=== PATIENT | male | born 1960 | race Caucasian/White ===

== ENCOUNTER 2018-11-06 19:04 | Emergency (ER) | payer OTHER, SELFPAY ==
[2018-11-06] VITALS (7 sets, daily range): BP systolic 119–147; BP diastolic 81–101; PULSE 54–81; RESP 16–22; TEMP 36.6–36.7; O2SAT 97–99; BMI 28.8
--- NOTE | 2018-11-06 19:56 | EKG12_ITS ---
Test Reason : CP Blood Pressure : / mmHG Vent. Rate : 064 BPM Atrial Rate : 064 BPM P-R Int : 128 ms QRS Dur : 094 ms QT Int : 410 ms P-R-T Axes : 034 -04 -05 degrees QTc Int : 422 ms Normal sinus rhythm Normal ECG Confirmed by YESENIA STONE, CARLOS ([id number]), electronic news gathering editor DUNIA MATOS ([id number]) on 11/09/2018 11:47:30 AM Referred By: HUMBLE Confirmed By:CARLOS PATTERSON MD
--- NOTE | 2018-11-06 20:02 | RAD_ITS ---
STUDY: X-RAY CHEST REASON FOR EXAM: Male, 58 years old. Coughing and dyspnea for 2 weeks. TECHNIQUE: 1 view COMPARISON: Prior chest radiograph of April 23, 2015. FINDINGS: Shallow inspiration without new consolidation, focal atelectasis or pleural effusion. There is no demonstrated pleural abnormality. Normal mediastinum and claude. Normal visualized pulmonary arteries. Normal visualized aortic arch and descending thoracic aorta. Normal visualized thoracic spine. Normal visualized ribs, clavicles, and shoulders. There is no demonstrated abnormality of the visualized soft tissue structures of the upper abdomen. RAD/Chest 1 View (Portable) IMPRESSION: Shallow inspiration without other acute cardiopulmonary findings. Electronically Signed: Shawna Kaplan MD at 20:17 EDT , Service support ,
[2018-11-06 20:14] LABS: Absolute Lymphocyte Count 2.51 X10^3/ul (0.83-4.51); Absolute Neutrophil Count 2.3 X10^3/uL (2.0-7.7); Basophil# 0.04 X10^3/uL; Basophil% 0.7 % (0-1); Eosinophil# 0.25 X10^3/uL; Eosinophils% 4.3 % (0-5); Hematocrit 44.2 % (40-54); Hemoglobin 15.5 g/dl (13.0-16.5); Lymphocyte # 2.51 X10^3/ul (4.0); Lymphocyte % 43.5 % (19-41); Mean Corp Hgb Conc 35.1 g/gl (32-36); Mean Corpuscular Hgb 30.8 pg (27.0-32.0); Mean Corpuscular Volume 87.7 fL (80-94); Mean Platelet Vol. 10.5 fl (6.2-12.0); Monocyte% 12.1 % (0-10); Neutrophil # 2.26 X10^3/uL (2.7-7.7); Neutrophil % 39.2 % (47-70); Platelet Count 232 K/mm3 (150-450); Prothrombin Time (Protime)PT. 13.4 SECONDS (11.7-14.9); RBC Distribution Width CV 12.4 % (11.6-14.6); RBC Distribution Width SD 39.8 fl (35.1-43.9); Red Blood Count 5.04 M/mm3 (4.6-6.2); White Blood Count 5.8 K/mm3 (4.4-11.0)
[2018-11-06 20:17] LABS: POSITIVE COUNT NO; POSITIVE DIFFERENTIAL NO; POSITIVE MORPHOLOGY NO
[2018-11-06 20:24] LABS: Anion Gap 6 (5-15); BUN 13 mg/dL (7-18); BUN/Creat Ratio 13.1 RATIO (10-20); Calcium,Total 8.6 mg/dL (8.5-10.1); Chloride 103 mmol/L (98-107); Creatinine, Serum 0.99 mg/dL (0.70-1.30); EST Glomerular Filtration Rate 83 mL/min (>60); Est Glom Filt Rate - Afr Amer 100 mL/min (>60); Estimated Creatinine Clearance 83.32 ml/min; Glucose 228 mg/dL (74-106); Potassium 3.9 mmol/L (3.5-5.1); Sodium Level 136 mmol/L (136-145)
--- NOTE | 2018-11-06 21:19 | ED.VISSUMM ---
- ER Visit Summary Date of Service: 11/06/18 Chief Complaint: Cough with wheezing and chest pain History of Present Illness: The patient is a 58 M nursing past medical history. No cardiac history. For the last 2 weeks the patient had a cough productive yellowish-green sputum. Chest pain with coughing. But no exertional or cardiac sounding chest pain. No history of DVT or PE. No dyspnea or hemoptysis. No leg pain or swelling. No travel or surgery. Patient was seen in the urgent care earlier [facility] who said he was wheezing and once in the ER. He denies any nausea vomiting diarrhea. Physical Examination: Middle-aged male no acute distress. Vital signs are stable and afebrile. Pulse ox 97% on room air no hypoxia. HEENT exam unremarkable. Moist with memories. Neck nontender. No lymphadenopathy. Lungs dry hacking cough. Expiratory wheezing throughout. No rales or rhonchi. Equal symmetrical. No distress. Heart regular rhythm rate about 60 no murmur. Chest wall nontender. Abdomen soft nontender. Normal bowel sounds. Patient is moving all 4 extremities. Neurovascular intact. Calves are nontender without edema or cords. Neurologically he is awake and alert with no focal motor deficits. Test Results: Nurses put into chest pain protocol due to the number of patients in the emergency department any acuity. Patient CBC was normal with a white count of 5. Hemoglobin 15. Electrolytes unremarkable glucose of 228. Troponin normal. EKG sinus rhythm rate is 64 no signs of NE or ischemia and unchanged from an EKG from 2015. Portable 1 view chest x-ray showed no acute abnormality read both by myself and the radiologist. No infiltrate. Emergency Department Course and Treatment: Patient has a bronchitis is not improving over 2 weeks. He is wheezing. He will be given a dose of prednisone here. A DuoNeb breathing treatment. Hycodan for his cough. And his first dose of Zithromax. Treatment Plan: Prednisone 40 mg a day for 1 week. Zithromax Z-GERARDO. Hycodan cough syrup. Follow-up with his doctor if not improving return if worse. Disposition: Discharge Impression: Bronchitis with wheezing and bronchospasm This note was generated with [employer] dictation software. It may contain incorrect words, spelling, and punctuation that were not noted in review of the chart prior to signing ED Disposition - Plan for ED Patient: Referrals: Jose Alberto Chin PA [Primary Care Provider] -
--- NOTE | 2018-11-06 21:22 | ED.DCSUM_ITS ---
- ER Visit Summary Date of Service: 11/06/18 Chief Complaint: Cough with wheezing and chest pain History of Present Illness: The patient is a 58 M nursing past medical history. No cardiac history. For the last 2 weeks the patient had a cough productive yellowish-green sputum. Chest pain with coughing. But no exertional or cardiac sounding chest pain. No history of DVT or PE. No dyspnea or hemoptysis. No leg pain or swelling. No travel or surgery. Patient was seen in the urgent care earlier [place] who said he was wheezing and once in the ER. He denies any nausea vomiting diarrhea. Physical Examination: Middle-aged male no acute distress. Vital signs are stable and afebrile. Pulse ox 97% on room air no hypoxia. HEENT exam unremarkable. Moist with memories. Neck nontender. No lymphadenopathy. Lungs dry hacking cough. Expiratory wheezing throughout. No rales or rhonchi. Equal symmetrical. No distress. Heart regular rhythm rate about 60 no murmur. Chest wall nontender. Abdomen soft nontender. Normal bowel sounds. Patient is moving all 4 extremities. Neurovascular intact. Calves are nontender without edema or cords. Neurologically he is awake and alert with no focal motor deficits. Test Results: Nurses put into chest pain protocol due to the number of patients in the emergency department any acuity. Patient CBC was normal with a white count of 5. Hemoglobin 15. Electrolytes unremarkable glucose of 228. Troponin normal. EKG sinus rhythm rate is 64 no signs of MO or ischemia and unchanged from an EKG from 2015. Portable 1 view chest x-ray showed no acute abnormality read both by myself and the radiologist. No infiltrate. Emergency Department Course and Treatment: Patient has a bronchitis is not improving over 2 weeks. He is wheezing. He will be given a dose of prednisone here. A DuoNeb breathing treatment. Hycodan for his cough. And his first dose of Zithromax. Treatment Plan: Prednisone 40 mg a day for 1 week. Zithromax Z-GERARDO. Hycodan cough syrup. Follow-up with his doctor if not improving return if worse. Disposition: Discharge Impression: Bronchitis with wheezing and bronchospasm This note was generated with Snow[employer] dictation software. It may contain incorrect words, spelling, and punctuation that were not noted in review of the chart prior to signing ED Disposition - Plan for ED Patient: Referrals: Jose Alberto Chin PA [Primary Care Provider] -
--- NOTE | 2018-11-06 21:22 | ED.DEP ---
ED Disposition - Plan for ED Patient: Disposition: Home or Assisted Living Instructions: Acute Bronchitis Prescriptions: Albuterol Inhaler [Ventolin Hfa] 1 - 2 puff INHALATION Q4H PRN PRN #1 inhaler PRN Reason: Wheezing Hydrocodone Bit/Homatropine [Hycodan Syrup] 5 ml GT Q4H PRN PRN 4 Days udc PRN Reason: Cough Azithromycin [Zithromax] 250 mg PO DAILY #4 tab Prednisone [Deltasone] 40 mg PO DAILY 7 Days tab Referrals: Jose Alberto Chin PA [Primary Care Provider] - 1 Week if not improving Additional Instructions: Prednisone 40-day for the wheezing. Inhaler 1 to 2 puffs every 2-4 hours as needed for wheezing and shortness of breath. Hycodan for the cough and to help you sleep do not drive if you are using it due to the codeine in it. Zithromax antibiotic 1 pill a day for the next 4 days starting tomorrow. Follow-up with your primary care provider if not improving return the ER if feeling worse.
[2018-11-06] MEDS: predniSONE 20 MG Tablet 60 MG PO (21:31)
[2018-11-06] MEDS: Azithromycin 250 MG Tablet 500 MG PO (21:31)
[2018-11-06] MEDS: Ipratropium/Albuterol Sulfate 3 ML AMPUL.NEB INHALATION (21:43)
--- NOTE | 2018-11-06 21:56 | ED.RN ---
THIS NURSE REVIEWED D/C INSTRUCTIONS WITH PT. PT VERBALIZED UNDERSTANDING OF INSTRUCTIONS. IV D/C. IV CATHETER INTACT. PT TOLERATED WELL. PT DENIES FURTHER NEEDS OR QUESTIONS AT THIS TIME
== END 2018-11-06 21:57 | disposition home or self-care (01) ==
PROVIDERS: Emergency Provider Emergency Medicine; Family Provider Physician Assistant; PCP Physician Assistant
DX: J40 Bronchitis, not specified as acute or chronic (principal); R06.2 Wheezing; R07.9 Chest pain, unspecified
CPT/HCPCS: 71045; 80048; 84484; 85025; 85610; 93005; 94640; 99285; A4216

== ENCOUNTER → 2023-04-09 | Outpatient (CLI) | payer OTHER, SELFPAY ==
[2023-04-09 10:30] LABS: Vitamin D,25 Hydroxy 25.7 ng/mL
[2023-04-09 10:39] LABS: ALB/GLOB Ratio 1.1 RATIO (0.9-2.4); AST(SGOT) 20 U/L (15-37); Alanine Aminotransfer ALT/SGPT 33 U/L (16-61); Albumin, Serum 3.9 g/dL (3.2-5.0); Alkaline Phosphatase 76 U/L (45-117); Anion Gap 6 (5-15); BUN 17 mg/dL (7-18); BUN/Creat Ratio 17.1 RATIO (10-20); Chloride 102 mmol/L (98-107); Cholesterol 233 mg/dL (200); EST Glomerular Filtration Rate 81 mL/min (>60); Est Glom Filt Rate - Afr Amer 98 mL/min (>60); Globulin 3.6 g/dL (2.2-4.2); Glucose 172 mg/dL (74-106); High Density Lipoprotein 43 mg/dL; Potassium 4.3 mmol/L (3.5-5.1); Protein, Total 7.5 g/dL (6.4-8.2); Sodium Level 136 mmol/L (136-145); Thyroid Stim Hormone (TSH) 2.32 uIU/mL (0.358-3.74); Triglycerides 150 mg/dL; Very Low Density Lipoprotein 30 mg/dL (5-40)
[2023-04-09 10:41] LABS: Microalbumin,Random Urine 11.1 mg/L (NO RANGE EST.); Microalbumin:Creatinine Ratio 7.2 mg/g CRE (<30 mg/g CRE)
== END | disposition home or self-care (01) ==
PROVIDERS: PCP Physician Assistant; Referring Provider Nurse Practitioner Family; Visit Provider Nurse Practitioner Family
DX: E11.9 Type 2 diabetes mellitus without complications (principal)
CPT/HCPCS: 36415; 80053; 80061; 82043; 82306; 82570; 84443

== ENCOUNTER → 2023-10-09 | Outpatient (CLI) | payer OTHER, SELFPAY ==
[2023-10-09 16:59] LABS: ALB/GLOB Ratio 1.1 RATIO (0.9-2.4); AST(SGOT) 25 U/L (15-37); Alanine Aminotransfer ALT/SGPT 35 U/L (16-61); Albumin, Serum 3.9 g/dL (3.2-5.0); Alkaline Phosphatase 91 U/L (45-117); Anion Gap 8 (5-15); BUN 23 mg/dL (7-18); BUN/Creat Ratio 18.7 RATIO (10-20); Calcium,Total 9.2 mg/dL (8.5-10.1); Chloride 105 mmol/L (98-107); Creatinine, Serum 1.23 mg/dL (0.70-1.30); EST Glomerular Filtration Rate 64 mL/min (>60); Est Glom Filt Rate - Afr Amer 77 mL/min (>60); Globulin 3.4 g/dL (2.2-4.2); Glucose 196 mg/dL (74-106); Protein, Total 7.3 g/dL (6.4-8.2); Sodium Level 137 mmol/L (136-145)
[2023-10-09 18:20] LABS: Vitamin D,25 Hydroxy 55.8 ng/mL
== END | disposition home or self-care (01) ==
LOC: BIMLAB 14:33
PROVIDERS: PCP Physician Assistant; Visit Provider Nurse Practitioner Family
DX: E11.9 Type 2 diabetes mellitus without complications (principal); E55.9 Vitamin D deficiency, unspecified
CPT/HCPCS: 36415; 80053; 82306

== ENCOUNTER → 2024-09-03 | Outpatient (CLI) | payer OTHER, SELFPAY ==
[2024-09-03 09:44] LABS: Absolute Lymphocyte Count 1.88 X10^3/uL (0.83-4.51); Absolute Neutrophil Count 2.8 X10^3/uL (2.0-7.7); Basophil# 0.09 X10^3/uL; Basophil% 1.5 % (0-1); Eosinophil# 0.45 X10^3/uL; Eosinophils% 7.4 % (0-5); Hematocrit 47.7 % (40-54); Hemoglobin 15.9 g/dL (13.0-16.5); Lymphocyte # 1.88 X10^3/ul (0.83-4.51); Lymphocyte % 31.1 % (19-41); Mean Corp Hgb Conc 33.3 g/dL (32-36); Mean Corpuscular Hgb 29.1 pg (27.0-32.0); Mean Corpuscular Volume 87.4 fL (80-94); Monocyte# 0.82 X10^3/uL; Monocyte% 13.6 % (0-10); NRBC Flagged by Analyzer 0 % (0-5); Neutrophil % 46.2 % (47-70); Platelet Count 258 K/mm3 (150-450); RBC Distribution Width CV 13.2 % (11.6-14.6); RBC Distribution Width SD 41.9 fl (35.1-43.9); Red Blood Count 5.46 M/mm3 (4.6-6.2); White Blood Count 6.1 K/mm3 (4.4-11.0)
[2024-09-03 10:22] LABS: ALB/GLOB Ratio 0.9 RATIO (0.9-2.4); AST(SGOT) 19 U/L (15-37); Alanine Aminotransfer ALT/SGPT 27 U/L (16-61); Albumin, Serum 3.9 g/dL (3.2-5.0); Alkaline Phosphatase 96 U/L (45-117); Anion Gap 7 (5-15); BUN 19 mg/dL (7-18); BUN/Creat Ratio 19.3 RATIO (10-20); Calcium,Total 9.5 mg/dL (8.5-10.1); Chloride 103 mmol/L (98-107); Cholesterol 247 mg/dL (200); Creatinine, Serum 0.99 mg/dL (0.70-1.30); EST Glomerular Filtration Rate 82 mL/min (>60); Est Glom Filt Rate - Afr Amer 99 mL/min (>60); Globulin 4.2 g/dL (2.2-4.2); Glucose 150 mg/dL (74-106); High Density Lipoprotein 51 mg/dL; Potassium 4.2 mmol/L (3.5-5.1); Protein, Total 8.1 g/dL (6.4-8.2); Sodium Level 137 mmol/L (136-145); Triglycerides 100 mg/dL; Very Low Density Lipoprotein 20 mg/dL (5-40)
[2024-09-03 10:47] LABS: Microalbumin,Random Urine 12.9 mg/L (NO RANGE EST.)
== END | disposition home or self-care (01) ==
LOC: LAB 09:16
PROVIDERS: PCP Physician Assistant; Referring Provider Nurse Practitioner Family; Visit Provider Nurse Practitioner Family
DX: E11.65 Type 2 diabetes mellitus with hyperglycemia (principal)
CPT/HCPCS: 36415; 80053; 80061; 82043; 82570; 84443; 85025

== ENCOUNTER 2024-11-04 15:00 | Outpatient (RCR) | payer OTHER, SELFPAY ==
--- NOTE | 2024-07-20 12:59 | HP.PTEVAL ---
Patient's Visit Information Visit Information Visit Information: MIKE RAGLAND is a 64 year old M referred to Physical Therapy by CHHAYA HOLT DO with a diagnosis of R ankle OA with ankle fusion. DOS: 04/21/2024.. Date of Evaluation: 07/20/24 Physical Therapist: Adolfo Garcia DPT Visit Plan Frequency: 2x /Week Duration: 6 Weeks Plan: 1) DF/PF ROM with BAPS, calf stretching 2) standing wt. shifting progression, progressing to full gait with CAM boot without AD. 3) Progression to shoe once able to by physician. 4) RLE strengthening throughout 5) progress proprioception once appropriate Guideline add in folder to progress with HEP at IE: towel calf stretch, 3 way wt. shifting, 3 way supine R hip strengthening, toe curls Subjective Subjective: Pt. is here today for his initial evaluation with diagnosis of R ankle OA with ankle fusion. DOS: 04/21/2024. Pt. reports being a cast for a while, but recently moved into a CAM boot. He arrives with use of B crutches and CAM boot. He has been doing slight ankle ROM and toe ROM at home as well as slight towel calf stretch. Pt. does have a history of R ankle surgery previously and L knee replacements. Pt. works a [employer] in maintenance. He reports typically having to walk longer distances throughout the day at work, lifting as much as 50# at times. He is diabetic but well managed. Pt. reports overall not much pain, but has some stiffness. He does have some slight soreness at heel/achilles region with increased WBing. Pt. is hopeful to get back to all recreational and work activities without limitations. Pain R ankle: Pain Intensity (Out of 10): 1 Pain Intensity Range: 0 and 4 Comment: mostly at achilles/calcaneus region Objective Objective: POSTURE: Pt. has increased wt. shift to L side in stance. He is able to increase wt. shift to R side, but has difficulty with getting into flat foot positioning. PALPATION: Pt. has well healing incisions without signs of infection. Pt. does have a larger anterior scar, but well healing. NEURO: pt. has normal sensation in BLEs. ROM: R ankle: DF -2 deg, PF 8deg. INV/EVR 0deg. MMT: R DF/PF: 4/5 with both motions, R hip: 4/5 throughout, knee: 4+/5 throughout GAIT: Pt. ambulates with crutches with moderate WBing on RLE during stance phase with CAM boot. Pt. unable to ambulate without crutches at this point in time. Balance/Special Test Scores Lower Extremity Functional Score: 34 Goals Goal 1:: LTG: Pt. to be I with HEP for RLE strengthening and ROM. Goal Time Frame: 6-8 Weeks Goal 2:: LTG: Pt. to be able to ambulate in CAM boot without use of crutches without increase in symptoms. Goal Time Frame: 2 Weeks Goal 3:: LTG: Pt. to able to walk with normalized gait pattern while in a shoe with normal mechanics. Goal Time Frame: 6-8 Weeks Goal 4:: LTG: Pt. to have full strength throughout RLE, symmetrical to L side. Goal Time Frame: 8-12 Weeks Goal 5:: LTG: Pt. to negotiate steps with reciprocal pattern with 1 HR without increase in R ankle/foot pain. Goal Time Frame: 8-12 Weeks Rehabilitation Potential Physical Therapy Diagnosis: Pt. has signs and symptoms consistent with R ankle OA with ankle fusion. DOS: 04/21/2024. Pt. has marked hypomobility, weakness, difficulty with walking. Pt. would benefit from PT to address the above limitation progressing back to all work and recreational activities without limitations. Rehabilitation Potential: Excellent Anticipated Interventions Patient/Client Instruction: Educate patient on: Condition, Plan of Care, Risk Factors and Benefits of Fitness Program For the Purpose of:: To facilitate caregiver knowledge, To improve self management, To prevent re-injury and To improve ability to perform tasks related to life management Therapeutic Exercise to Include: Strength training, Power training, Endurance training, Balance training, Coordination, Passive ROM and Active ROM For the Purpose of:: To decrease pain, To increase ROM, To improve nutrient delivery to tissue, To increase oxygenation perfusion and To improve muscle performance and motor function Manual Therapy Techniques to Include: Mobilization and Soft tissue mobilization For the Purpose of:: To decrease pain, To increase ROM, To improve nutrient delivery to tissue, To improve health of tissue, To decrease soft tissue restriction and To increase flexibility/ROM Text: Thank you for the opportunity to evaluate your patient. For Medicare and Medicare HMO plans, please review the plan of care and approve it. It will need to be FAXED BACK to us at [phone] for Medicare purposes. For Medicare only, by signing this I certify the plan of care. Please let me know if there are questions or concerns regarding this plan of care. Physician Signature: Date:
== END 2024-11-04 19:00 | disposition home or self-care (01) ==
LOC: PT 15:00
PROVIDERS: PCP Physician Assistant; Referring Provider Orthopaedic Surgery; Visit Provider Orthopaedic Surgery
DX: M19.071 Primary osteoarthritis, right ankle and foot (principal)
CPT/HCPCS: 97110; 97140; 97161